=== PATIENT | male | born 1985 | race Caucasian/White ===

== ENCOUNTER 2022-04-07 14:46 | Emergency (ER) | payer BC ==
[2022-04-07 16:11] VITALS: TEMP 98.6
[2022-04-07] MEDS ORDERED: KETOROLAC 15 MG/ML 1 ML VIAL IVP STA (18:58)
--- NOTE | 2022-04-07 19:06 | ED ---
General Adult HPI - General Chief complaint: Skin/Abscess/Foreign Body Stated complaint: R leg pain Time Seen by Provider: 04/07/22 18:37 Source: patient, RN notes reviewed Mode of arrival: ambulatory Limitations: no limitations - History of Present Illness Initial comments: 36-year-old male presents to the emergency department for evaluation of abscess and erythema to the right lower extremity 1 week. Patient states he developed an infected hair approximately a week ago that he thought he took care of at home, however 4 days ago developed increased redness and discomfort at that has continued to increase in size. States he now has another abscess proximal to the initial site which continues to drain. Reports taking Bactrim twice daily for the past few days that he had from an old prescription. Patient states he is currently in rehab for alcohol use disorder. He is not diabetic. Denies fever, chills, nausea, vomiting, or diarrhea. - Related Data Previous Rx's Medication Instructions Recorded Cephalexin [Keflex] 500 mg PO Q6HR 10 Days #40 cap 04/07/22 Ibuprofen [Motrin] 600 mg PO Q8HR PRN #30 tab 04/07/22 Sulfamethox-Tmp 800-160Mg [Bactrim 1 each PO Q12HR #20 tab 04/07/22 Ds] Allergies Allergy/AdvReac Type Severity Reaction Status Date / Time No Known Allergies Allergy Verified 04/07/22 16:11 Review of Systems ROS Statement: Those systems with pertinent positive or pertinent negative responses have been documented in the HPI. ROS Other: All systems not noted in ROS Statement are negative. Past Medical History Past Medical History: Hypertension History of Any Multi-Drug Resistant Organisms: None Reported Past Surgical History: Joint Replacement, Orthopedic Surgery Smoking Status: Never smoker Past Alcohol Use History: Daily, Heavy Past Drug Use History: Marijuana General Exam Limitations: no limitations General appearance: alert, in no apparent distress, anxious Respiratory exam: Present: normal lung sounds bilaterally. Absent: respiratory distress, wheezes, rales, rhonchi, stridor Cardiovascular Exam: Present: regular rate, normal rhythm, normal heart sounds. Absent: systolic murmur, diastolic murmur, rubs, gallop, clicks GI/Abdominal exam: Present: soft, normal bowel sounds. Absent: distended, tenderness, guarding, rebound, rigid Neurological exam: Present: alert, oriented X3, normal gait Psychiatric exam: Present: anxious Skin exam: Present: warm, dry, erythema (large erythematous area surrounding abscesses on the right lower extremity, lateral aspect of the leg) Expanded Type of lesion: Present: abscess (abscess to right lower extremity, fluctuant center with large area of surrounding erythema. Also has an area of skin sloughi ng with an open area draining distal to the intact abscess.) Distribution of rash: RLE Course Vital Signs 04/07/22 04/07/22 04/07/22 16:09 19:24 21:35 Temperature 98.6 F Pulse Rate 91 86 86 Respiratory 20 20 16 Rate Blood Pressure 147/91 148/88 140/88 O2 Sat by Pulse 99 98 99 Oximetry Medical Decision Making - Medical Decision Making 36-year-old male presents to the emergency department for evaluation of right lower extremity abscess. Upon exam, patient is well-appearing and in no acute distress. Vital signs are stable. He is afebrile. There is a fluctuant 1 cm diameter abscess located on the lateral aspect of the lower extremity with mo derate amount of surrounding erythema. Does have a small abscess distal to this that is open and draining. No history of MRSA. Patient is not diabetic. Currently undergoing treatment for alcohol abuse. X-ray was obtained and was unremarkable aside from some soft tissue swelling. Laboratory studies leukocytosis. Incision and drainage of abscess was performed with moderate amount of purulent bloody drainage. Abscess was probed and loculations broken up. Thoroughly irrigated. Wound culture sent. Did receive a dose of Zosyn and will be started on Bactrim and Keflex. He is instructed on wound care and follow-up. Return parameters discussed in detail. Patient verbalizes understanding and agrees with this. Attending: Lamont - Lab Data Result diagrams: 04/07/22 19:40 04/07/22 19:40 Lab Results 04/07/22 04/07/22 Range/Units 19:40 19:40 WBC 9.5 (3.8-10.6) k/uL RBC 5.17 (4.30-5.90) m/uL Hgb 16.1 (13.0-17.5) gm/dL Hct 46.9 (39.0-53.0) % MCV 90.6 (80.0-100.0) fL MCH 31.1 (25.0-35.0) pg MCHC 34.3 (31.0-37.0) g/dL RDW 12.0 (11.5-15.5) % Plt Count 293 (150-450) k/uL MPV 7.4 Neutrophils % (Manual) 67 % Lymphocytes % (Manual) 31 % Eosinophils % (Manual) 2 % Neutrophils # (Manual) 6.37 (1.3-7.7) k/uL Lymphocytes # (Manual) 2.95 (1.0-4.8) k/uL Eosinophils # (Manual) 0.19 (0-0.7) k/uL Nucleated RBCs 0 (0-0) /100 WBC Manual Slide Review Performed Sodium 138 (137-145) mmol/L Potassium 4.4 (3.5-5.1) mmol/L Chloride 102 (98-107) mmol/L Carbon Dioxide 27 (22-30) mmol/L Anion Gap 9 mmol/L BUN 14 (9-20) mg/dL Creatinine 1.18 (0.66-1.25) mg/dL Est GFR (CKD-EPI)AfAm >90 (>60 ml/min/1.73 sqM) Est GFR (CKD-EPI)NonAf 78 (>60 ml/min/1.73 sqM) Glucose 87 (74-99) mg/dL Calcium 9.0 (8.4-10.2) mg/dL Total Bilirubin 0.2 (0.2-1.3) mg/dL AST 19 (17-59) U/L ALT 25 (4-49) U/L Alkaline Phosphatase 86 (38-126) U/L Total Protein 7.3 (6.3-8.2) g/dL Albumin 4.4 (3.5-5.0) g/dL - Radiology Data Radiology results: report reviewed, image reviewed X-ray of the tibia and fibula was obtained. Report was reviewed in its entirety. Impression per Dr. Wallace is soft tissue swelling. No acute bony abnormality. Disposition Clinical Impression: Abscess of right lower extremity, Cellulitis of right lower extremity Disposition: HOME SELF-CARE Condition: Stable Instructions (If sedation given, give patient instructions): Cellulitis (ED), Abscess (ED) Additional Instructions: Elevate the affected extremity while at rest. May take Tylenol or Motrin if needed for pain. Apply warm compresses 2-3 times daily to affected area. Cleanse wound twice daily with mild soap and water. Keep wound covered. Take antibiotics as prescribed. Follow-up for a wound recheck on Sunday. Return to the emergency department if you develop a fever, increased pain, or significant worsening of redness. Prescriptions: Sulfamethox-Tmp 800-160Mg [Bactrim Ds] 1 each PO Q12HR #20 tab Cephalexin [Keflex] 500 mg PO Q6HR 10 Days #40 cap Ibuprofen [Motrin] 600 mg PO Q8HR PRN #30 tab PRN Reason: Pain Is patient prescribed a controlled substance at d/c from ED?: No Referrals: None,Stated [Primary Care Provider] - 1-2 days Time of Disposition: 21:15
[2022-04-07 19:25] VITALS: PULSE 86
[2022-04-07 19:51] LABS: HCT 46.9 % (39.0-53.0); HGB 16.1 gm/dL (13.0-17.5); MCH 31.1 pg (25.0-35.0); MCHC 34.3 g/dL (31.0-37.0); MCV 90.6 fL (80.0-100.0); Mean Platelet Volume 7.4; Platelet Count 293 k/uL (150-450); RBC 5.17 m/uL (4.30-5.90); WBC 9.5 k/uL (3.8-10.6)
[2022-04-07 19:59] LABS: ALT 25 U/L (4-49); AST 19 U/L (17-59); African American GFR (CKD) >90 (>60 ml/min/1.73 sqM); Albumin 4.4 g/dL (3.5-5.0); Alkaline Phosphatase 86 U/L (38-126); Anion Gap 9 mmol/L; Blood Urea Nitrogen 14 mg/dL (9-20); Carbon Dioxide 27 mmol/L (22-30); Chloride 102 mmol/L (98-107); Glucose 87 mg/dL (74-99); Non-African American GFR(CKD) 78 (>60 ml/min/1.73 sqM); Potassium 4.4 mmol/L (3.5-5.1); Sodium 138 mmol/L (137-145); Total Bilirubin 0.2 mg/dL (0.2-1.3); Total Protein 7.3 g/dL (6.3-8.2)
[2022-04-07] MEDS ORDERED: LIDOCAINE 1% INJ 10MG/ML (30 ML VIAL-PF) SQ ONE (20:27)
--- NOTE | 2022-04-07 20:33 | XR ---
EXAMINATION TYPE: XR tibia fibula RT DATE OF EXAM: 04/07/2022 COMPARISON: NONE HISTORY: Soft tissue swelling TECHNIQUE: 4 views FINDINGS: There is plate with screws fixing the distal fibula. There are 2 screws in the medial malle olus of the ankle. I see no acute fracture nor dislocation. There is mild soft tissue swelling around the ankle. There is some soft tissue swelling lateral to the proximal fibula. Knee joint is anatomic . IMPRESSION: Soft tissue swelling. No acute bony abnormality.
[2022-04-07] MEDS ORDERED: PIPERACILLIN-TAZOBACTAM 3.375 GM in SODIUM CHLORIDE 0.9% 100 ML IVPB STA (20:34)
[2022-04-07 20:44] LABS: Eosinophils # (M) 0.19 k/uL (0-0.7); Lymphocytes # (M) 2.95 k/uL (1.0-4.8); Neutrophils # (M) 6.37 k/uL (1.3-7.7); Neutrophils % (M) 67 %; Nucleated Red Blood Cells 0 /100 WBC (0-0); Total Cells Counted 100
[2022-04-07] MEDS ORDERED: BACITRACIN OINT 1 EACH PACKET TOPICAL ONE (21:11)
[2022-04-07 21:36] VITALS: BP 140/88; RESP 16
== END 2022-04-07 21:36 | disposition home or self-care (01) ==
LOC: EC 14:46
DX: L02.415 Cutaneous abscess of right lower limb (principal); L03.115 Cellulitis of right lower limb; I10 Essential (primary) hypertension; F12.90 Cannabis use, unspecified, uncomplicated; Z79.899 Other long term (current) drug therapy
CPT/HCPCS: 36415; 80053; 85025; 87040; 87070; 87205; 87077; 87186; 73590; 99284; 96365; 96375; J2543; J2001; J1885

== ENCOUNTER 2022-04-20 14:41 | Emergency (ER) | payer BC, OTHER ==
[2022-04-20 15:34] VITALS: BP 154/84; PULSE 90; RESP 20; TEMP 97.7
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
[2022-04-20 21:22] LABS: HCT 42.3 % (39.0-53.0); HGB 14.4 gm/dL (13.0-17.5); MCH 30.6 pg (25.0-35.0); MCV 89.7 fL (80.0-100.0); Mean Platelet Volume 7.8; Platelet Count 234 k/uL (150-450); RBC 4.72 m/uL (4.30-5.90); RDW 12.4 % (11.5-15.5); WBC 8.7 k/uL (3.8-10.6)
[2022-04-20 21:23] LABS: INR 0.9 (<1.2); Partial Thromboplastin Time 26.9 sec (22.0-30.0); Prothrombin Time 9.5 sec (9.0-12.0)
[2022-04-20 21:26] LABS: ALT 34 U/L (4-49); AST 29 U/L (17-59); African American GFR (CKD) >90 (>60 ml/min/1.73 sqM); Albumin 4.1 g/dL (3.5-5.0); Alkaline Phosphatase 73 U/L (38-126); Anion Gap 4 mmol/L; Blood Urea Nitrogen 15 mg/dL (9-20); Calcium 8.9 mg/dL (8.4-10.2); Carbon Dioxide 29 mmol/L (22-30); Chloride 105 mmol/L (98-107); Glucose 101 mg/dL (74-99); Non-African American GFR(CKD) >90 (>60 ml/min/1.73 sqM); Potassium 4.3 mmol/L (3.5-5.1); Sodium 138 mmol/L (137-145); Total Bilirubin 0.3 mg/dL (0.2-1.3)
[2022-04-20 21:35] LABS: Band Neutrophils % 1 %; Eosinophils # (M) 0.44 k/uL (0-0.7); Lymphocytes # (M) 3.39 k/uL (1.0-4.8); Monocytes # (M) 0.44 k/uL (0-1.0); Neutrophils % (M) 50 %; Nucleated Red Blood Cells 0 /100 WBC (0-0); Reactive Lymphocytes Present; Total Cells Counted 100
--- NOTE | 2022-04-20 21:35 | CT ---
EXAMINATION TYPE: CT brain wo con DATE OF EXAM: 04/20/2022 COMPARISON: None HISTORY: headaches and vision changes CT DLP: 1119.4 mGycm. Automated Exposure Control for Dose Reduction was Utilized. TECHNIQUE: CT scan of the head is performed without contrast. FINDINGS: There is no acute intracranial hemorrhage, mass effect, or midline shift identified. The ventricles and sulci are within normal limits in size. The globes are intact and the visualized sin uses are clear. IMPRESSION: No acute intracranial hemorrhage, mass effect, or midline shift is seen.
--- NOTE | 2022-04-20 21:36 | XR ---
EXAMINATION: XR chest 2V: 04/20/2022 9:27 PM CLINICAL INDICATION: difficulty breathing TECHNIQUE: Departmental protocol COMPARISON: None FINDINGS: The lungs are clear. The pleural spaces are negative. The cardiac silhouette is not enlarged. The remainder of the mediastinal silhouette is unremarkable. The skeletal structures and soft tissues are negative for acute findings. IMPRESSION: No acute process.
[2022-04-20] MEDS ORDERED: KETOROLAC 15 MG/ML 1 ML VIAL IVP STA (21:49)
[2022-04-20] MEDS ORDERED: METOCLOPRAMIDE 5 MG/ML 2 ML VIAL IVP STA (21:49)
[2022-04-20] MEDS ORDERED: diphenhydrAMINE 50 MG/ML 1 ML VIAL IVP STA (21:49)
--- NOTE | 2022-04-20 23:32 | US ---
EXAMINATION TYPE: US venous doppler duplex LE DATE OF EXAM: 04/20/2022 10:44 PM COMPARISON: NONE CLINICAL HISTORY: swelling. leg swelling. No hx of DVT SIDE PERFORMED: Bilateral TECHNIQUE: The lower extremity deep venous system is examined utilizing real time linear array sonog luis with graded compression, doppler sonography and color-flow sonography. VESSELS IMAGED: Common Femoral Vein Deep Femoral Vein Greater Saphenous Vein * Femoral Vein Popliteal Vein Small Saphenous Vein * Proximal Calf Veins (* superficial vessels) Right Leg: Negative for DVT Left Leg: Negative for DVT. Varicose veins visualized in mid calf, but compressed and had blood flow . Edema viusalized in calf IMPRESSION: No evidence of deep vein thrombosis. There are some varicose veins in the left leg.
== END 2022-04-21 00:24 | disposition home or self-care (01) ==
LOC: EC 14:41
DX: R60.9 Edema, unspecified (principal); R51.9 Headache, unspecified; I10 Essential (primary) hypertension; F12.90 Cannabis use, unspecified, uncomplicated
CPT/HCPCS: 36415; 93005; 83880; 80053; 84484; 85025; 85610; 85730; 87502; 87635; 71046; 93970; 70450; 99284; 96374; 96375 ×2; J1200; J2765; J1885